=== PATIENT | female | born 1985 | race Caucasian/White ===

== ENCOUNTER 2023-08-07 09:26 | Inpatient (IN) | payer OTHER ==
[~2023-08-07] VITALS: Ht 167.6 cm; Wt 103.4 kg
[2023-08-07] VITALS (7 sets, daily range): BP systolic 110–155; BP diastolic 56–82; PULSE 89–121; RESP 11–28; TEMP 100; O2SAT 96–100
[2023-08-07] MEDS ORDERED: ONDANSETRON HCL INJ 2MG/ML 2ML 2 MG/ML VIAL IV STA (09:37)
[2023-08-07] MEDS ORDERED: Morphine 4mg INJECTION 4 MG/ML INJ IV STA (09:37)
[2023-08-07] MEDS ORDERED: LACTATED RINGER'S 1,000 ML IV ONE (09:45)
[2023-08-07 10:02] LABS: BASOPHILS # (AUTO) 0.1 (0.0-0.1); BASOPHILS % 0.5 % (0.0-1.0); EOSINOPHILS # (AUTO) 0.1 (0.0-0.4); EOSINOPHILS % 0.8 % (0.0-6.0); HEMATOCRIT 27.5 % (34.2-44.1); LYMPHOCYTES # (AUTO) 1.7 (1.0-3.2); LYMPHOCYTES % 14.2 % (18.0-39.1); MEAN CORPUSCULAR HEMOGLOBIN 16.2 pg (28-32); MEAN CORPUSCULAR HGB CONC 26.9 g/dL (31-35); MONOCYTES # (AUTO) 0.6 (0.2-0.8); MONOCYTES % 4.8 % (4.4-11.3); NEUTROPHILS # (AUTO) 9.4 (2.1-6.9); NEUTROPHILS % 79.4 % (38.7-80.0); PLATELET COUNT 460 x10e3/uL (140-360); RED BLOOD COUNT 4.58 x10e6/uL (3.6-5.1); RED CELL DISTRIBUTION WIDTH 21.2 % (11.7-14.4)
[2023-08-07 10:05] LABS: HEMOGLOBIN 7.4 g/dL (12.0-16.0)
[2023-08-07 10:16] LABS: ALANINE AMINOTRANSFERASE 30 IU/L (0-55); ALBUMIN 3.7 g/dL (3.5-5.0); ALBUMIN/GLOBULIN RATIO 0.8 (0.8-2.0); ALKALINE PHOSPHATASE 74 IU/L (40-150); BLOOD UREA NITROGEN 7 mg/dL (7-26); BUN/CREATININE RATIO 7 (6-25); CALCIUM 9.7 mg/dL (8.4-10.2); CARBON DIOXIDE 18 mmol/L (22-29); CHLORIDE 103 mmol/L (98-107); CREATININE, SERUM 1.05 mg/dL (0.57-1.11); GLUCOSE 156 mg/dL (74-118); LIPASE 11 U/L (8-78); SODIUM 137 mmol/L (136-145)
[2023-08-07] MEDS ORDERED: IOPAMIDOL 370 MG/ML 100 ML INFUS..BTL INJ ONE (10:24)
[2023-08-07] MEDS ORDERED: LACTATED RINGER'S 1,000 ML ONE (11:39)
[2023-08-07 11:57] LABS: CLARITY,URINE CLOUDY (CLEAR); COLOR,URINE YELLOW (YELLOW); LEUKOCYTE ESTERASE ,URINE NEGATIVE (NEGATIVE); NITRITE,URINE NEGATIVE (NEGATIVE); PROTEIN,URINE DIPSTICK 2+ (NEGATIVE)
[2023-08-07 11:58] LABS: KETONES,URINE 1+ (NEGATIVE); URINE UROBILINOGEN 1 mg/dL (0.2 - 1)
[2023-08-07] MEDS ORDERED: LACTATED RINGER'S 1,000 ML INJ ONE (12:00)
[2023-08-07 12:12] LABS: EPITHELIAL CELLS,URINE FEW /LPF
[2023-08-07 12:13] LABS: BACTERIA,URINE MODERATE /HPF; RBC,URINE 0-5 /HPF (0-5)
[2023-08-07] MEDS ORDERED: HYDROMORPHONE 1MG/1ML INJ ONE (13:27)
[2023-08-07] MEDS ORDERED: FAMOTIDINE 20 MG/2 ML VIAL IV ONE (13:28)
[2023-08-07] MEDS ORDERED: SODIUM CHLORIDE 0.9% 100 ML ONE (13:28)
[2023-08-07] MEDS ORDERED: KETAMINE 50MG/5ML SYR ONE (13:28)
[2023-08-07] MEDS ORDERED: ACETAMINOPHEN 1000 MG/100 ML 100 ML IV ONE (13:28)
[2023-08-07] MEDS ORDERED: SUCCINYLCHOLINE CHLORIDE 20 MG/ML 10ML VIAL ONE (13:33)
[2023-08-07] MEDS ORDERED: PROPOFOL IV EMULSION 10 MG/ML 20 ML VIAL ONE (13:33)
[2023-08-07] MEDS ORDERED: ROCURONIUM BROMIDE 10 MG/ML 5ML VIAL IV ONE (13:33)
[2023-08-07] MEDS ORDERED: LIDOCAINE HCL 2% LOCAL INJ 5 ML SDV VIAL INJ ONE (13:33)
[2023-08-07] MEDS ORDERED: ALBUMIN 25% 12.5GM 50ML 50 ML IV ONE (13:38)
[2023-08-07 13:52] LABS: HYPOCHROMASIA SLIGHT; MICROCYTOSIS SLIGHT; PLATELET ESTIMATE MODERATELY INCREASED; PLATELET MORPHOLOGY COMMENT NORMAL
[2023-08-07] MEDS ORDERED: MIDAZOLAM HCL 2 MG/2 ML VIAL ONE (14:17)
[2023-08-07] MEDS ORDERED: FENTANYL CITRATE/PF 100MCG/2 ML INJ ONE (14:17)
[2023-08-07] MEDS: HYDROMORPHONE 0.2MG/ML-SOD CHL 30ML PCA SYRINGE IV PRN (16:15)
[2023-08-07] MEDS ORDERED: ACETAMINOPHEN 1000 MG/100 ML IV PRN (16:15)
[2023-08-07] MEDS ORDERED: NALOXONE HCL INJ 0.4 MG/ML AMP IV PRN (16:15)
[2023-08-07] MEDS ORDERED: ALLERGY (17:52)
[2023-08-07] MEDS: SODIUM CHLORIDE 0.9% 1000ML 1,000 ML IV SCH ×2 (18:37→21:44)
[2023-08-07] MEDS: METRONIDAZOLE 500MG/NS 100ML 100 ML IV SCH (18:37)
[2023-08-07] MEDS: SODIUM CHLORIDE 0.9% 250ML IRRIG IR SCH ×2 (18:38→21:44)
[2023-08-08] VITALS (29 sets, daily range): BP systolic 97–139; BP diastolic 56–88; PULSE 84–116; RESP 7–28; TEMP 98.2–99.5; O2SAT 94–100
[2023-08-08] MEDS: METRONIDAZOLE 500MG/NS 100ML 100 ML IV SCH ×4 (00:09→18:25)
[2023-08-08] MEDS: SODIUM CHLORIDE 0.9% 250ML IRRIG IR SCH ×6 (02:00→22:01)
[2023-08-08] MEDS: HYDROMORPHONE 0.2MG/ML-SOD CHL 30ML PCA SYRINGE IV PRN ×2 (04:51→22:34)
[2023-08-08 06:24] LABS: BASOPHILS % 0.1 % (0.0-1.0); LYMPHOCYTES % 4.8 % (18.0-39.1); MEAN CORPUSCULAR HEMOGLOBIN 16.2 pg (28-32); MEAN CORPUSCULAR HGB CONC 26.8 g/dL (31-35); MEAN CORPUSCULAR VOLUME 60.6 fL (81-99); MONOCYTES % 4.6 % (4.4-11.3); NEUTROPHILS # (AUTO) 18.5 (2.1-6.9); PLATELET COUNT 416 x10e3/uL (140-360); RED BLOOD COUNT 3.45 x10e6/uL (3.6-5.1); RED CELL DISTRIBUTION WIDTH 20.2 % (11.7-14.4); WHITE BLOOD COUNT 20.56 x10e3/uL (4.8-10.8)
[2023-08-08 06:33] LABS: HEMATOCRIT 20.9 % (34.2-44.1); HEMOGLOBIN 5.6 g/dL (12.0-16.0)
[2023-08-08] MEDS: SODIUM CHLORIDE 0.9% 1000ML 1,000 ML IV SCH ×2 (06:35→13:12)
[2023-08-08 06:39] LABS: CALCIUM 7.9 mg/dL (8.4-10.2); CREATININE, SERUM 0.63 mg/dL (0.57-1.11)
[2023-08-08] MEDS ORDERED: SODIUM CHLORIDE 0.9% 250ML 250 ML ONE ×2 (08:59→12:59)
[2023-08-09] VITALS (54 sets, daily range): BP systolic 112–171; BP diastolic 67–108; PULSE 54–107; RESP 10–26; TEMP 98.9–99.8; O2SAT 92–100
[2023-08-09] MEDS: SODIUM CHLORIDE 0.9% 250ML IRRIG IR SCH ×6 (02:31→21:50)
[2023-08-09] MEDS: SODIUM CHLORIDE 0.9% 1000ML 1,000 ML IV SCH (02:36)
[2023-08-09] MEDS: METRONIDAZOLE 500MG/NS 100ML 100 ML IV SCH ×4 (05:06→18:13)
[2023-08-09 06:46] LABS: BASOPHILS # (AUTO) 0.1 (0.0-0.1); BASOPHILS % 0.3 % (0.0-1.0); LYMPHOCYTES % 10.1 % (18.0-39.1); MEAN CORPUSCULAR HEMOGLOBIN 19.5 pg (28-32); MEAN CORPUSCULAR HGB CONC 30.3 g/dL (31-35); MEAN CORPUSCULAR VOLUME 64.3 fL (81-99); MONOCYTES # (AUTO) 1.1 (0.2-0.8); MONOCYTES % 5.5 % (4.4-11.3); NEUTROPHILS # (AUTO) 16.4 (2.1-6.9); NEUTROPHILS % 82.6 % (38.7-80.0); PLATELET COUNT 344 x10e3/uL (140-360); RED BLOOD COUNT 3.39 x10e6/uL (3.6-5.1); RED CELL DISTRIBUTION WIDTH 24.6 % (11.7-14.4); WHITE BLOOD COUNT 19.85 x10e3/uL (4.8-10.8)
[2023-08-09 06:59] LABS: HEMATOCRIT 21.8 % (34.2-44.1)
[2023-08-09 07:00] LABS: HEMOGLOBIN 6.6 g/dL (12.0-16.0)
[2023-08-09 07:37] LABS: ANION GAP 13.2 mmol/L (8-16); CALCIUM 8.6 mg/dL (8.4-10.2); CREATININE, SERUM 0.69 mg/dL (0.57-1.11); POTASSIUM 3.2 mmol/L (3.5-5.1)
[2023-08-09] MEDS ORDERED: SODIUM CHLORIDE 0.9% 250ML 250 ML IV ONE (08:00)
[2023-08-09] MEDS: KCL 20MEQ/.9 SOD CHL 1,000 ML IV SCH ×2 (12:22→18:13)
[2023-08-09] MEDS: HYDROMORPHONE 0.2MG/ML-SOD CHL 30ML PCA SYRINGE IV PRN (13:19)
[2023-08-09] MEDS ORDERED: DIPHENHYDRAMINE HCL INJ 50 MG/ML VIAL IV ONE (14:15)
[2023-08-09] MEDS ORDERED: ACETAMINOPHEN 325 MG TAB PO ONE (14:15)
[2023-08-09] MEDS ORDERED: ACETAMINOPHEN 1000 MG/100 ML IV STA (14:32)
[2023-08-09] MEDS ORDERED: DIPHENHYDRAMINE HCL INJ 50 MG/ML VIAL IV PRN (16:15)
[2023-08-09] MEDS ORDERED: HYDROMORPHONE 0.2MG/ML-SOD CHL 30ML PCA SYRINGE IV PRN (16:45)
[2023-08-09 18:04] LABS: HEMATOCRIT 29.3 % (34.2-44.1); HEMOGLOBIN 8.9 g/dL (12.0-16.0)
[2023-08-09] MEDS: BISACODYL 10 MG SUPP PR SCH (20:55)
[2023-08-10] VITALS (28 sets, daily range): BP systolic 124–200; BP diastolic 75–112; PULSE 53–98; RESP 14–29; TEMP 98.4–99.7; O2SAT 91–100
[2023-08-10] MEDS: METRONIDAZOLE 500MG/NS 100ML 100 ML IV SCH ×4 (01:41→17:04)
[2023-08-10] MEDS: SODIUM CHLORIDE 0.9% 250ML IRRIG IR SCH ×6 (02:02→22:00)
[2023-08-10] MEDS: KCL 20MEQ/.9 SOD CHL 1,000 ML IV SCH ×2 (03:53→14:25)
[2023-08-10 05:09] LABS: BASOPHILS # (AUTO) 0.1 (0.0-0.1); BASOPHILS % 0.4 % (0.0-1.0); EOSINOPHILS # (AUTO) 0.1 (0.0-0.4); EOSINOPHILS % 0.6 % (0.0-6.0); HEMOGLOBIN 8.7 g/dL (12.0-16.0); LYMPHOCYTES # (AUTO) 2.4 (1.0-3.2); LYMPHOCYTES % 13.1 % (18.0-39.1); MEAN CORPUSCULAR HEMOGLOBIN 20.2 pg (28-32); MONOCYTES # (AUTO) 1.2 (0.2-0.8); MONOCYTES % 6.6 % (4.4-11.3); NEUTROPHILS # (AUTO) 14.4 (2.1-6.9); NEUTROPHILS % 77.3 % (38.7-80.0); PLATELET COUNT 293 x10e3/uL (140-360); RED BLOOD COUNT 4.31 x10e6/uL (3.6-5.1); RED CELL DISTRIBUTION WIDTH 24.8 % (11.7-14.4); WHITE BLOOD COUNT 18.68 x10e3/uL (4.8-10.8)
[2023-08-10 05:13] LABS: MEAN CORPUSCULAR VOLUME 67.3 fL (81-99)
[2023-08-10 05:28] LABS: ANION GAP 13.5 mmol/L (8-16); CALCIUM 8.7 mg/dL (8.4-10.2); CREATININE, SERUM 0.68 mg/dL (0.57-1.11); POTASSIUM 3.5 mmol/L (3.5-5.1)
[2023-08-10] MEDS ORDERED: CHLORASEPTIC SPRAY 177 ML BTL MM PRN (07:45)
[2023-08-10] MEDS: BISACODYL 10 MG SUPP PR SCH ×2 (08:21→22:28)
[2023-08-10 09:21] LABS: EOSINOPHILS % (MANUAL) 2 % (0-7); LYMPHOCYTES % (MANUAL) 7 % (19-48); MONOCYTES % (MANUAL) 8 % (3.4-9.0); NEUTROPHILS % (MANUAL) 83 % (40-74)
[2023-08-10 09:22] LABS: ANISOCYTOSIS MODERATE; HYPOCHROMASIA MODERATE; MICROCYTOSIS MODERATE; OVALOCYTES FEW; PLATELET ESTIMATE ADEQUATE; PLATELET MORPHOLOGY COMMENT NORMAL; RBC MORPHOLOGY COMMENT ABNORMAL; TARGET CELLS FEW; TEAR DROP CELLS FEW
[2023-08-10] MEDS ORDERED: HYDRALAZINE HCL 20 MG/ML VIAL IV PRN (17:15)
[2023-08-10] MEDS: ONDANSETRON HCL INJ 2MG/ML 2ML 2 MG/ML VIAL IV PRN (19:35)
[2023-08-10] MEDS: HYDROMORPHONE 1MG/1ML INJ IV PRN ×2 (19:35→22:39)
[2023-08-11] VITALS (15 sets, daily range): BP systolic 138–154; BP diastolic 78–92; PULSE 64–78; RESP 14–23; TEMP 98.6–99; O2SAT 91–100
[2023-08-11] MEDS: METRONIDAZOLE 500MG/NS 100ML 100 ML IV SCH ×4 (01:08→17:04)
[2023-08-11] MEDS: SODIUM CHLORIDE 0.9% 250ML IRRIG IR SCH ×6 (02:00→20:35)
[2023-08-11] MEDS: ONDANSETRON HCL INJ 2MG/ML 2ML 2 MG/ML VIAL IV PRN ×2 (04:15→20:53)
[2023-08-11] MEDS: HYDROMORPHONE 1MG/1ML INJ IV PRN ×5 (04:17→20:53)
[2023-08-11] MEDS: KCL 20MEQ/.9 SOD CHL 1,000 ML IV SCH ×3 (04:29→20:10)
[2023-08-11 06:03] LABS: BASOPHILS # (AUTO) 0.1 (0.0-0.1); BASOPHILS % 0.6 % (0.0-1.0); EOSINOPHILS # (AUTO) 0.2 (0.0-0.4); EOSINOPHILS % 1.6 % (0.0-6.0); HEMATOCRIT 28.1 % (34.2-44.1); HEMOGLOBIN 8.5 g/dL (12.0-16.0); LYMPHOCYTES # (AUTO) 2.2 (1.0-3.2); LYMPHOCYTES % 20.1 % (18.0-39.1); MEAN CORPUSCULAR HEMOGLOBIN 20.2 pg (28-32); MEAN CORPUSCULAR HGB CONC 30.2 g/dL (31-35); MEAN CORPUSCULAR VOLUME 66.9 fL (81-99); MONOCYTES # (AUTO) 1.1 (0.2-0.8); NEUTROPHILS # (AUTO) 7.1 (2.1-6.9); NEUTROPHILS % 65.1 % (38.7-80.0); PLATELET COUNT 291 x10e3/uL (140-360); RED CELL DISTRIBUTION WIDTH 26.5 % (11.7-14.4); WHITE BLOOD COUNT 10.96 x10e3/uL (4.8-10.8)
[2023-08-11 06:38] LABS: ALBUMIN 2.3 g/dL (3.5-5.0); ANION GAP 12.5 mmol/L (8-16); CALCIUM 8.4 mg/dL (8.4-10.2); CREATININE, SERUM 0.6 mg/dL (0.57-1.11); POTASSIUM 3.5 mmol/L (3.5-5.1)
[2023-08-11 06:39] LABS: ALBUMIN/GLOBULIN RATIO 0.7 (0.8-2.0)
[2023-08-11] MEDS: BISACODYL 10 MG SUPP PR SCH ×2 (08:00→08:02)
[2023-08-11 11:02] LABS: ANISOCYTOSIS MODERATE
[2023-08-11 11:03] LABS: MICROCYTOSIS MODERATE; TARGET CELLS FEW; TEAR DROP CELLS FEW
[2023-08-12] VITALS (8 sets, daily range): BP systolic 128–148; BP diastolic 77–93; PULSE 72–84; RESP 16–20; TEMP 98.4–99.1; O2SAT 93–96
[2023-08-12] MEDS: METRONIDAZOLE 500MG/NS 100ML 100 ML IV SCH ×4 (00:04→18:15)
[2023-08-12] MEDS: SODIUM CHLORIDE 0.9% 250ML IRRIG IR SCH ×8 (00:04→23:18)
[2023-08-12] MEDS: ONDANSETRON HCL INJ 2MG/ML 2ML 2 MG/ML VIAL IV PRN ×2 (01:50→19:55)
[2023-08-12] MEDS: HYDROMORPHONE 1MG/1ML INJ IV PRN ×6 (01:51→19:54)
[2023-08-12] MEDS: KCL 20MEQ/.9 SOD CHL 1,000 ML IV SCH ×2 (05:14→16:04)
[2023-08-12] MEDS ORDERED: FUROSEMIDE INJ 10 MG/ML 2 ML VIAL IV ONE (18:45)
[2023-08-12] MEDS ORDERED: DIPHENHYDRAMINE HCL INJ 50 MG/ML VIAL IV ONE (22:30)
[2023-08-13] VITALS (10 sets, daily range): BP systolic 128–155; BP diastolic 43–93; PULSE 70–89; RESP 17–20; TEMP 97.7–98.7; O2SAT 93–98
[2023-08-13] MEDS: HYDROMORPHONE 1MG/1ML INJ IV PRN ×7 (00:08→21:16)
[2023-08-13] MEDS: METRONIDAZOLE 500MG/NS 100ML 100 ML IV SCH ×4 (00:08→17:21)
[2023-08-13] MEDS: ONDANSETRON HCL INJ 2MG/ML 2ML 2 MG/ML VIAL IV PRN (03:56)
[2023-08-13] MEDS: SODIUM CHLORIDE 0.9% 250ML IRRIG IR SCH ×4 (10:00→22:00)
[2023-08-13] MEDS: KCL 20MEQ/.9 SOD CHL 1,000 ML IV SCH (11:14)
[2023-08-13] MEDS ORDERED: DIPHENHYDRAMINE HCL 25 MG CAP PO PRN (22:30)
[2023-08-14] VITALS: BP 147/99; PULSE 81; RESP 18; TEMP 99.7; O2SAT 95
[2023-08-14] MEDS: METRONIDAZOLE 500MG/NS 100ML 100 ML IV SCH ×2 (00:43→06:40)
[2023-08-14] MEDS: HYDROMORPHONE 1MG/1ML INJ IV PRN (00:44)
[2023-08-14] MEDS: KCL 20MEQ/.9 SOD CHL 1,000 ML IV SCH (00:46)
[2023-08-14] MEDS: SODIUM CHLORIDE 0.9% 250ML IRRIG IR SCH ×3 (02:00→10:00)
[2023-08-14 04:00] VITALS: BP 149/94; PULSE 71; RESP 20; TEMP 98.6; O2SAT 96
[2023-08-14] MEDS: HYDROCODONE/APAP 7.5MG-325MG 1 EA TAB PO PRN ×3 (04:12→11:47)
[2023-08-14 07:17] VITALS: PULSE 92; RESP 20; O2SAT 98
[2023-08-14 07:42] VITALS: BP 134/86; PULSE 80; RESP 18; TEMP 98.4
[2023-08-14 08:50] VITALS: BP 134/86; PULSE 80; RESP 18; TEMP 98.4; O2SAT 98
[2023-08-14 11:30] VITALS: BP 154/84; PULSE 85; RESP 18; TEMP 98.4; O2SAT 96
== END 2023-08-14 12:15 | disposition home or self-care (01) | DRG 853 ==
LOC: ER 09:31 → UNDOADMIN 13:01 → ERHOLD 13:01 → OR 14:00 → PACU V 14:01 → ICU 17:09 → MED/SURG 08-11 17:46
PROVIDERS: ADMIT Surgery; ATTEND Surgery
PROC: 3E03329 Introduction of Other Anti-infective into Peripheral Vein, Percutaneous Approach (ICD-10-PCS; 2023-08-07)
PROC: 0DB80ZZ Excision of Small Intestine, Open Approach (ICD-10-PCS; principal; 2023-08-07 13:51)
DX: A41.9 Sepsis, unspecified organism (principal); K63.1 Perforation of intestine (nontraumatic); K65.8 Other peritonitis; R65.20 Severe sepsis without septic shock; Z11.52 Encounter for screening for COVID-19; Z88.2 Allergy status to sulfonamides
CPT/HCPCS: 36415; 51700; 74177; 80048; 80053; 81001; 83605; 83690; 84702; 85014; 85018; 85025; 86850; 86900; 86920; 87040; 87086; 88307; 88309; 93005; 94799; 99284; J0330; J1170; J1200; J1940; J2001; J2250; J2270; J2405; J2543; J7030; J7050; P9016; Q9967; U0002